=== PATIENT | male | born 1955 | race Caucasian/White ===

== ENCOUNTER 2017-11-28 15:49 | Emergency (ER) | payer SELFPAY ==
[2017-11-28 15:50] VITALS: BP 117/80; PULSE 76; RESP 16; TEMP 36.1; O2SAT 95; BMI 21.8
--- NOTE | 2017-11-28 16:07 | ED.VISSUMM ---
- ER Visit Summary Date of Service: 11/28/17 Chief Complaint: Rash right hip buttocks region that is pruritic and ventral side of the penis History of Present Illness: The patient is a 62 M who was recently camping. He believes he has poison stacia on his buttocks. Is uncertain what the rash may be on his penis. His was diagnosed with a vaginal yeast infection. He denies dysuria, frequency, urgency or hematuria. He denies any testicular pain. He has no other complaints Physical Examination: Patient has a rash right hip buttocks area consistent with contact dermatitis. The area of involvement is minimal. He has a weepy red rash ventral surface of penis with satellite lesions consistent with a yeast infection. Test Results: None Emergency Department Course and Treatment: Steroid cream for contact dermatitis and Diflucan for yeast infection Treatment Plan: Per above Disposition: Discharged to home Impression: 1. Monilial skin infection penis 2. Contact dermatitis right buttocks This note was generated with [employer] dictation software. It may contain incorrect words, spelling, and punctuation that were not noted in review of the chart prior to signing ED Disposition - Plan for ED Patient: Disposition: Home or Assisted Living Chief Complaint: Rash Instructions: ED Dermatitis Poison Stacia, ED Candidiasis Cutaneous Prescriptions: Hydrocortisone 2.5% Crm [Hytone] 1 applic TOPICAL TID #1 tube Referrals: NOT,DEFINED [Primary Care Provider] -
[2017-11-28] MEDS: Fluconazole 100 MG Tablet 200 MG PO (16:11)
== END 2017-11-28 16:26 | disposition home or self-care (01) ==
LOC: ED 16:25
PROVIDERS: Emergency Provider Emergency Medicine; Family Provider Family Medicine; PCP Family Medicine
DX: L23.7 Allergic contact dermatitis due to plants, except food (principal); N48.29 Other inflammatory disorders of penis
CPT/HCPCS: 99282

== ENCOUNTER → 2019-01-28 14:27 | Outpatient (CLI) | payer SELFPAY ==
[2019-01-27 14:45] VITALS: BMI 18.6
[2019-01-28 14:32] LABS: Bacteria 0 SEEN /hpf (None Seen); Mucous, Urine 0 SEEN /hpf (<or=2+); Red Blood Cells-Urine 0 SEEN /hpf (0-5); Squamous Epithelial Cells - UA 0 SEEN /hpf (0-5)
[2019-01-28 14:45] LABS: Color, Urine Yellow (Yellow); Glucose, Dipstick Normal (Normal); Ketone-Dipstick Negative (Negative); Leukocyte Esterase-Dipstick Negative /ul (Negative); Nitrite-Dipstick Negative (Negative); Occult Blood-Urine 10 /ul (Negative); Protein-Dipstick Negative (Negative); Urine Bilirubin Dipstick Negative (Negative); Urine Clarity Clear (Clear); Urine Urobilinogen Normal (Normal)
[2019-01-28 15:32] LABS: White Blood Cells 0-5 SEEN /hpf (0-5)
== END ==
PROVIDERS: Family Provider Family Medicine; PCP Family Medicine; Visit Provider Physician Assistant Surgical
DX: R31.9 Hematuria, unspecified (principal); L29.3 Anogenital pruritus, unspecified
CPT/HCPCS: 81001

== ENCOUNTER 2020-05-11 09:31 | Emergency (ER) | payer MEDICARE, SELFPAY ==
[2019-01-27 14:45] VITALS: BMI 18.6
[2020-05-11 09:32] VITALS: BP 150/88; PULSE 82; RESP 17; TEMP 36.4; O2SAT 96; BMI 19.4
--- NOTE | 2020-05-11 10:20 | ED.VIS.GEN ---
History of Present Illness Chief Complaint: Complaint Informant: Patient Onset: Today Current Severity: - - Resolved Maximum Severity: Mild Narrative: Patient presents secondary to an episode of hematuria this morning. He states his first urination of the morning was normal. When he went to the bathroom again he noted blood with a small clot. He denies any abdominal pain. No dysuria or problems of unable to empty his bladder. He denies any similar symptoms in the past. - Past Medical History (1) Hypertension Status: Chronic (2) High cholesterol Status: Chronic Past Medical History - Allergies and Home Meds Allergies/Adverse Reactions: Allergies aspirin Allergy (Verified 05/11/20 09:31) Vomiting Primary Care Physician: [facility] [Primary Care Provider] - Surgical History: herniorrhaphy, tonsillectomy Smoking Status: Current every day smoker Review of Systems General: Denies: Chills, Fever Eyes: Denies: Visual changes - bilaterally ENT: Denies: Bilateral ear pain Cardiovascular: Denies: Chest pain Respiratory: Denies: Dyspnea, Cough Gastrointestinal: Denies: Abdominal pain, Vomiting, Diarrhea Genitourinary: Reports: Hematuria. Denies: Dysuria, Frequency Musculoskeletal: Denies: Back pain Neurological: Denies: Headache Hematologic: Denies: Easy bruising, Easy bleeding Allergy: Denies: Uticaria Physical Exam Vital Signs/Narrative: Vital Signs Temp Pulse Resp BP Pulse Ox 05/11/20 09:32 97.6 F L 82 17 150/88 H 96 Inital Vital Signs reviewed: Yes General: Well nourished, Well developed Head: Normocephalic ENT: Moist mucous membranes Cardiovascular: Regular rate, Regular rhythm Respiratory: No distress, CTA bilaterally Abdomen: Soft, Nontender Back: Negative for: CVA tenderness Skin: Normal color Neurological: Alert, Oriented x3 Psychological: Normal affect Diagnostic/Tx/Re-eval Laboratory Results 05/11/20 10:20 Urine Color Brown Urine Clarity Sl. Cloudy Urine pH 5.0 Ur Specific [place] 1.025 Urine Protein 100 H Urine Glucose (UA) Normal Urine Ketones 5 H Urine Occult Blood 250 H Urine Nitrite Positive H Urine Bilirubin Negative Urine Urobilinogen 1 H Ur Leukocyte Esterase 25 H Urine RBC 50-100 SEEN Urine WBC 0-5 SEEN Ur Squamous Epith Cells 0 SEEN Amorphous Sediment 2+ Urine Bacteria 1+ Urine Mucus 0 SEEN - Medical Decision Making Urinalysis does reveal blood along with 1+ bacteria and positive nitrates. Patient be treated with 3 days of antibiotics to clear of any infection. He was advised he needs to follow-up with his doctor to ensure this completely resolves. If he still has any remaining hematuria he may require cystoscopy to evaluate for any masses. He voices understanding and agreement. ED Disposition - Plan for ED Patient: Disposition: Home or Assisted Living Diagnosis: Cystitis Instructions: ED Bladder Infection, Male (Adult) Prescriptions: Ciprofloxacin [Cipro] 500 mg PO BID #6 tab Transmission Status: Pending to [facility] [Primary [facility] Provider] - 1-2 Weeks
[2020-05-11 10:35] LABS: Mucous, Urine 0 SEEN /hpf (<or=2+); Squamous Epithelial Cells - UA 0 SEEN /hpf (0-5)
[2020-05-11 10:46] LABS: Color, Urine Brown (Yellow); Glucose, Dipstick Normal (Normal); Ketone-Dipstick 5 mg/dl (Negative); Leukocyte Esterase-Dipstick 25 /ul (Negative); Nitrite-Dipstick Positive (Negative); Occult Blood-Urine 250 /ul (Negative); Protein-Dipstick 100 mg/dl (Negative); Specific Gravity, Urine 1.025 (1.002-1.030); Urine Bilirubin Dipstick Negative (Negative); Urine Clarity Sl. Cloudy (Clear); Urine Urobilinogen 1 mg/dl (Normal)
[2020-05-11 10:49] LABS: Amorphous Sediment 2+; Bacteria 1+ /hpf (None Seen); Red Blood Cells-Urine 50-100 SEEN /hpf (0-5); White Blood Cells 0-5 SEEN /hpf (0-5)
[2020-05-11] MEDS: Ciprofloxacin 500 MG Tablet PO (11:03)
[2020-05-11 11:04] VITALS: RESP 17
== END 2020-05-11 11:37 | disposition home or self-care (01) ==
PROVIDERS: Emergency Provider Emergency Medicine
DX: N30.91 Cystitis, unspecified with hematuria (principal); F17.200 Nicotine dependence, unspecified, uncomplicated; I10 Essential (primary) hypertension; Z79.82 Long term (current) use of aspirin
CPT/HCPCS: 81001; 99283

== ENCOUNTER 2020-07-08 11:00 | Outpatient (RCR) | payer MEDICARE, OTHER, SELFPAY | END 2020-07-08 23:59 | LOC: IMMUN 11:00 | PROVIDERS: PCP Family Medicine; Visit Provider Family Medicine | DX: Z23 Encounter for immunization (principal) | CPT/HCPCS: 0011A; 0012A ==

== ENCOUNTER 2022-02-11 11:02 | Emergency (ER) | payer MEDICARE, SELFPAY ==
[2022-02-11 11:03] VITALS: BP 130/88; PULSE 81; RESP 14; TEMP 36.2; O2SAT 97; BMI 19.2
--- NOTE | 2022-02-11 11:22 | EDS_ITS ---
HPI History of Present Illness Chief Complaint: Complaint Narrative Narrative: 66-year-old male presenting with dysuria and dark urine which started this morning. He states he has a distant history of UTI in the past. Patient denies any flank pain or testicular pain. He does not have any abdominal pain, nausea, vomiting. He states he is eating and drinking normally. He states he feels physically well. [facility] Medical History History of heart disease Home Medications aspirin 81 mg chewable tablet 81 mg PO DAILY 09/11/13 [History Last Taken Unknown] lisinopril 2.5 mg tablet 2.5 mg PO DAILY 09/11/13 [History Last Taken Unknown] metoprolol tartrate 25 mg tablet 12.5 mg PO BID 09/11/13 [History Last Taken Unknown] trazodone 50 mg tablet 50 mg PO QHS 09/11/13 [History Last Taken Unknown] cephalexin 500 mg capsule 500 mg PO Q12 #14 caps 02/11/22 [Rx Last Taken Unknown] Allergy/AdvReac Type Severity Reaction Status Date / Time aspirin Allergy Vomiting Verified 02/11/22 11:03 Surgical History Hx of heart artery stent Social History Smoking Status: Current every day smoker tobacco type: cigarettes ROS ROS ED Constitutional Constitutional ED: Denies chills or fever(s) Eyes Eyes: Denies blurry vision or change in vision ENT ENT ED: Denies ear pain or sore throat Cardiovascular Cardiovascular: Denies chest pain, palpitations or racing heartbeat Respiratory/Chest Respiratory/Chest: Denies cough, dyspnea or sputum Gastrointestinal Gastrointestinal: Denies abdominal pain, constipation, diarrhea, nausea or vomiting Genitourinary Genitourinary ED: Reports dysuria and urinary frequency Musculoskeletal Musculoskeletal: Denies arthralgias, myalgias or neck pain Integumentary Denies abscess, Abrasions or rash Neurologic Neurologic: Denies headache(s), paresthesias or weakness Psychiatric Psychiatric: Denies anxiety, depression, suicidal ideation or suicidal thoughts Endocrine Endocrinology: Denies polydipsia or polyuria EXAM Physical Exam Const Vital Signs: 02/11/22 11:03 Temperature 97.2 F L Temperature Source Temporal Pulse Rate 81 Respiratory Rate 14 Blood Pressure 130/88 H Blood Pressure Mean 102 Pulse Ox 97 Oxygen Delivery Method Room Air Positive well nourished General Appearance ED: NAD; Negative for pallor HEENT Reports moist mucous membranes normocephalic and atraumatic Eyes PERRL and EOMs intact bilaterally General Eye ED: Negative for pale conjunctiva or scleral icterus Resp normal respiratory effort and clear to auscultation bilaterally Cardio regular rate and regular rhythm GI non-tender Back/Spine no CVA tenderness Neuro oriented x3 and CN's II-XII intact bilaterally Sensorium / Orientation: alert Motor Exam: strength 5/5 throughout Psych mental status grossly normal Skin General Skin Exam: Negative for jaundice or pallor MDM MDM MDM Narrative Medical decision making narrative: Otherwise healthy appearing male presenting with dysuria and dark urine. He states he is had a UTI in the past. His vital signs are stable and he is afebrile. I did check a urinalysis and this is consistent with UTI with positive nitrites. Patient also has 100 leukocyte esterase. 1+ bacteria without contamination. Urine sent for culture. Patient started on Keflex in the ER. Prescription given for home. Return precautions discussed. Impression: 1. UTI Lab Data Attestation: I reviewed the patient's lab results. Labs: Laboratory Results - last 24 hr 02/11/22 12:08 Urine Color Emma Urine Clarity Sl. Cloudy Urine pH 5.0 Ur Specific [place] 1.025 Urine Protein 100 H Urine Glucose (UA) Normal Urine Ketones 5 H Urine Occult Blood 250 H Urine Nitrite Positive H Urine Bilirubin Negative Urine Urobilinogen Normal Ur Leukocyte Esterase 100 H Urine RBC > 100 SEEN Urine WBC 0-5 SEEN Ur Squamous Epith Cells 0 SEEN Urine Bacteria 1+ Urine Mucus 0 SEEN Discharge Plan Triage Chief Complaint: Complaint ED Provider: Glen Jamison Dx/Rx/DC Orders Instructions: ED Urinary Tract Infections in Men Prescriptions: New cephalexin 500 mg capsule 500 mg PO Q12 Qty: 14 0RF No Action trazodone 50 MG tablet 50 mg PO QHS aspirin 81 MG tablet,chewable 81 mg PO DAILY lisinopril 2.5 MG tablet 2.5 mg PO DAILY metoprolol tartrate 25 MG tablet 12.5 mg PO BID [facility] Referrals: Nicole Conroy MD [Med Staff - [employer]] - Disposition Disposition: Home, Self Care Discharge Date/Time: 02/11/22 12:48
[2022-02-11 12:14] LABS: Mucous, Urine 0 SEEN /hpf (<or=2+); Squamous Epithelial Cells - UA 0 SEEN /hpf (0-5)
[2022-02-11 12:24] LABS: Color, Urine Amber (Yellow); Glucose, Dipstick Normal (Normal); Ketone-Dipstick 5 mg/dl (Negative); Leukocyte Esterase-Dipstick 100 /ul (Negative); Nitrite-Dipstick Positive (Negative); Occult Blood-Urine 250 /ul (Negative); Protein-Dipstick 100 mg/dl (Negative); Specific Gravity, Urine 1.025 (1.002-1.030); Urine Bilirubin Dipstick Negative (Negative); Urine Clarity Sl. Cloudy (Clear); Urine Urobilinogen Normal (Normal)
[2022-02-11] MEDS: Cephalexin 250 MG Capsule 500 MG PO (12:45)
[2022-02-11 12:46] LABS: Red Blood Cells-Urine > 100 SEEN /hpf (0-5); White Blood Cells 0-5 SEEN /hpf (0-5)
[2022-02-11 12:47] LABS: Bacteria 1+ /hpf (None Seen)
== END 2022-02-11 12:48 | disposition home or self-care (01) ==
PROVIDERS: Emergency Provider Student in an Organized Health Care Education/Training Program; Visit Provider Student in an Organized Health Care Education/Training Program
DX: N39.0 Urinary tract infection, site not specified (principal); F17.210 Nicotine dependence, cigarettes, uncomplicated; Z79.82 Long term (current) use of aspirin; Z79.899 Other long term (current) drug therapy
CPT/HCPCS: 81001; 87086; 99283